=== PATIENT | male | born 1985 | race Caucasian/White ===

== ENCOUNTER 2016-11-07 00:19 | Emergency (ER) | payer OTHER ==
[~2016-11-07] VITALS: Ht 182.9 cm; Wt 129.3 kg
[2016-11-07] MEDS ORDERED: CELEXA20 MG PO (00:39)
[2016-11-07 02:55] LABS: URINE BILIRUBIN NEGATIVE (Negative); URINE BLOOD NEGATIVE (Negative); URINE COLOR YELLOW; URINE GLUCOSE-RANDOM* NEGATIVE (Negative); URINE KETONES NEGATIVE (Negative); URINE LEUKOCYTES-REFLEX NEGATIVE (Negative); URINE PROTEIN (DIPSTICK) NEGATIVE (Negative); URINE UROBILINOGEN 0.2 E.U./dl (0.2-1.0)
[2016-11-07] MEDS ORDERED: DOXYCYCLINE 10100 MG PO (03:16)
[2016-11-07 03:45] VITALS: BP 134/63
== END 2016-11-07 03:46 | disposition home or self-care (01) ==
LOC: ER 00:19
PROVIDERS: Emergency Medicine
DX: N45.1 Epididymitis (principal); F17.210 Nicotine dependence, cigarettes, uncomplicated; F10.99 Alcohol use, unspecified with unspecified alcohol-induced disorder; Z88.2 Allergy status to sulfonamides; Z88.6 Allergy status to analgesic agent